=== PATIENT | male | born 1990 | race Caucasian/White ===

== ENCOUNTER 2024-01-02 16:50 | Emergency (ER) | payer OTHER ==
[~2024-01-02] VITALS: Ht 170.2 cm; Wt 84.6 kg
[2024-01-02] MEDS ORDERED: ESTRACE2 MG PO (17:23)
[2024-01-02] MEDS ORDERED: MIRTAZAPINE45 M1 PO (17:24)
[2024-01-02] MEDS ORDERED: CYMBALTA20 MG PO (17:24)
[2024-01-02] MEDS ORDERED: BUSPIRONE HCL15 MG PO (17:26)
[2024-01-02] MEDS ORDERED: MELATONIN3 M3 PO (17:26)
[2024-01-02] MEDS ORDERED: SPIRONOLACTONE100 MG PO (17:27)
[2024-01-02] MEDS ORDERED: DIPHTH,PERTUSS(ACELL),TET VAC 0.5 ML SYRINGE IM ONE (18:15)
[2024-01-02 18:49] VITALS: BP 117/90
== END 2024-01-02 18:50 | disposition other institution, planned readmission (95) ==
LOC: ED 16:50
DX: S51.812A Laceration without foreign body of left forearm, initial encounter (principal); G89.29 Other chronic pain; F20.9 Schizophrenia, unspecified; F60.3 Borderline personality disorder; W26.8XXA Contact with other sharp object(s), not elsewhere classified, initial encounter; Y92.149 Unspecified place in prison as the place of occurrence of the external cause; Z23 Encounter for immunization; Z79.899 Other long term (current) drug therapy; Z79.890 Hormone replacement therapy
CPT/HCPCS: 90715

== ENCOUNTER 2024-02-12 22:34 | Emergency (ER) | payer OTHER ==
[~2024-02-12] VITALS: Ht 170.2 cm; Wt 89.0 kg
[~2024-02-12 22:34] MED LIST: BUSPIRONE HCL15 MG PO; CYMBALTA20 MG PO; ESTRACE2 MG PO; MELATONIN3 M3 PO; MIRTAZAPINE45 M1 PO; SPIRONOLACTONE100 MG PO
[2024-02-13 00:56] VITALS: BP 110/78
== END 2024-02-12 23:57 | disposition other institution, planned readmission (95) ==
LOC: ED 22:34
DX: S51.812A Laceration without foreign body of left forearm, initial encounter (principal); X58.XXXA Exposure to other specified factors, initial encounter; S05.12XA Contusion of eyeball and orbital tissues, left eye, initial encounter; Z79.899 Other long term (current) drug therapy
CPT/HCPCS: 99283

== ENCOUNTER 2024-03-14 10:36 | Emergency (ER) | payer OTHER ==
[2024-03-14 11:51] VITALS: BP 126/82
== END 2024-03-14 11:51 | disposition home or self-care (01) ==
LOC: ED 10:36
DX: S61.512A Laceration without foreign body of left wrist, initial encounter (principal); W26.8XXA Contact with other sharp object(s), not elsewhere classified, initial encounter; Y92.149 Unspecified place in prison as the place of occurrence of the external cause